=== PATIENT | female | born 1980 | race Caucasian/White ===

== ENCOUNTER 2016-07-05 09:17 | Inpatient (IN) | payer BC ==
[2016-07-05] VITALS (16 sets, daily range): BP systolic 95–122; BP diastolic 53–70
[~2016-07-05] VITALS: Ht 172.7 cm; Wt 85.9 kg
[2016-07-05] MEDS ORDERED: PRENATAL TABLE1 EAC3 PO (10:01)
[2016-07-05] MEDS ORDERED: COLACE100 MG PO (10:01)
[2016-07-05 11:14] LABS: EOSINOPHIL (%) 1.2 % (0-5); EOSINOPHIL COUNT 0.1 K/uL (0-0.3); HEMATOCRIT 35.2 % (36.0-46.0); IMMATURE GRANULOCYTE (%) 0.9 % (0.0-0.7); IMMATURE GRANULOCYTE COUNT 0.1 K/uL; INSTRUMENT ABS NEUTROPHIL CT 4.8 K/uL; LYMPHOCYTE COUNT 1.1 K/uL (1.0-2.8); MCH 32.6 PG (29.0-34.0); MCHC 33.5 G/DL (30.0-36.0); MCV 97.2 FL (83-99); MEAN PLAT.VOLUME 9.4 uM^3 (9.5-12.4); MONOCYTE (%) 7.6 % (3-12); MONOCYTE COUNT 0.5 K/uL (0-0.8); NEUTROPHIL (%) 73.4 % (45-76); NEUTROPHIL COUNT 4.8 K/uL (1.8-6.4); PLATELET COUNT 184 K/uL (156-360); RBC DIS.WIDTH-CV 13.9 % (11.8-14.6); RBC DIS.WIDTH-SD 49.5 % (39-53); RED BLOOD COUNT 3.62 M/uL (3.80-5.20); WHITE BLOOD COUNT 6.5 K/uL (4.1-10.2)
[2016-07-06 05:21] LABS: EOSINOPHIL (%) 1.3 % (0-5); EOSINOPHIL COUNT 0.1 K/uL (0-0.3); HEMATOCRIT 33.4 % (36.0-46.0); IMMATURE GRANULOCYTE (%) 0.4 % (0.0-0.7); INSTRUMENT ABS NEUTROPHIL CT 5.7 K/uL; LYMPHOCYTE COUNT 1.3 K/uL (1.0-2.8); MCH 32.1 PG (29.0-34.0); MCHC 33.2 G/DL (30.0-36.0); MCV 96.5 FL (83-99); MEAN PLAT.VOLUME 9.3 uM^3 (9.5-12.4); MONOCYTE (%) 9.8 % (3-12); MONOCYTE COUNT 0.8 K/uL (0-0.8); NEUTROPHIL (%) 71.9 % (45-76); NEUTROPHIL COUNT 5.7 K/uL (1.8-6.4); PLATELET COUNT 172 K/uL (156-360); RBC DIS.WIDTH-CV 13.7 % (11.8-14.6); RBC DIS.WIDTH-SD 48.2 % (39-53); RED BLOOD COUNT 3.46 M/uL (3.80-5.20); WHITE BLOOD COUNT 7.9 K/uL (4.1-10.2)
[2016-07-06 23:00] VITALS: BP 103/58
[2016-07-07 07:57] VITALS: BP 96/50
[2016-07-07] MEDS ORDERED: IBUPROFEN800 MG PO (08:33)
== END 2016-07-07 10:14 | disposition home or self-care (01) | DRG 775 ==
LOC: LDRP-OP 09:17 → 2WEST 09:18 → LDRP-OP 08-12 11:21
PROVIDERS: Midwife
DX: O40.3XX0 Polyhydramnios, third trimester, not applicable or unspecified (principal); M41.9 Scoliosis, unspecified; Z3A.39 39 weeks gestation of pregnancy; Z37.0 Single live birth; L40.9 Psoriasis, unspecified
CPT/HCPCS: 85025; J7120